=== PATIENT | male | born 1950 | race Hispanic/Latino ===

== ENCOUNTER 2018-10-25 13:07 | Emergency (ER) | payer OTHER ==
[~2018-10-25 13:07] MED LIST: ALPR2TAB2 PO; ASPI-555 PO; ENALAPRIL PO; FERR159T2 PO; FOLI1TAB85 PO; INSLAN SQ; LOVASTATIN PO; METF-446 PO; NOVOLOG SQ; OMEG-75 PO; PARO40TA72 PO; TESTOSTERONE GEL TP; VERA120T11 PO; VITA400C70 PO
[2018-10-25] MEDS ORDERED: LIDOCAINE HCL 1% 20 ML VIAL ONE (13:54)
== END 2018-10-25 14:40 | disposition home or self-care (01) ==
LOC: EDH 13:07
DX: S63.283A Dislocation of proximal interphalangeal joint of left middle finger, initial encounter (principal); E11.9 Type 2 diabetes mellitus without complications; E78.5 Hyperlipidemia, unspecified; I10 Essential (primary) hypertension; Z79.4 Long term (current) use of insulin; Z96.649 Presence of unspecified artificial hip joint; W18.39XA Other fall on same level, initial encounter; Y93.89 Activity, other specified; Y92.098 Other place in other non-institutional residence as the place of occurrence of the external cause; Y99.8 Other external cause status
CPT/HCPCS: 26770; 73140

== ENCOUNTER 2019-01-07 12:51 | Emergency (ER) | payer OTHER ==
[~2019-01-07 12:51] MED LIST changes: +VITA-164 PO; -VITA400C70 PO
[2019-01-07 13:16] LABS: BASOPHILS % (AUTO) 1.2 % (0.0-5.0); EOSINOPHILS % (AUTO) 2.9 % (0.0-8.0); HEMATOCRIT 46.1 % (42-54); LYMPHOCYTES % (AUTO) 34.3 % (21.0-51.0); MEAN CORPUSCULAR HEMOGLOBIN 28.6 pg (27.0-33.0); MEAN CORPUSCULAR HGB CONC 33.6 g/dL (32.0-36.0); MEAN CORPUSCULAR VOLUME 85.2 fL (79-99); MONOCYTES % (AUTO) 7.3 % (3.0-13.0); NEUTROPHILS % (AUTO) 54.3 % (40.0-77.0); NUCLEATED RED BLOOD CELLS 0.2 % (0.0-0.19); PLATELET COUNT (AUTO) 129 K/uL (130-400); RED BLOOD CELL COUNT(AUTO) 5.41 MIL/uL (4.50-6.20); RED CELL DISTRIBUTION WIDTH 16.8 % (11.0-15.5); WHITE BLOOD COUNT (AUTO) 4.3 K/uL (4.8-10.8)
[2019-01-07 13:25] LABS: CARBON DIOXIDE 26 mmol/L (21-32); CHLORIDE 103 mmol/L (101-111); CREATININE 1.1 mg/dL (0.5-1.5); GLOMERULAR FILTR. RATE CALC 71 mL/min (>60); GLUCOSE,RANDOM 322 mg/dL (70-105); POTASSIUM 4.6 mmol/L (3.5-5.1); SODIUM SERUM 139 mmol/L (136-145); UREA NITROGEN, BLOOD 11 mg/dL (7-18)
[2019-01-07 13:30] LABS: ALANINE AMINOTRANSFERASE 50 U/L (12-78); ALBUMIN 3.5 g/dL (3.5-5.0); ALCOHOL, BLOOD < 3 mg/dL (0-10); ASPARTATE AMINOTRANSFERASE 41 U/L (10-37); BILIRUBIN,TOTAL 0.7 mg/dL (0.2-1.0); TOTAL PROTEIN, SERUM 7.2 g/dL (6.0-8.3)
[2019-01-07 13:35] LABS: INR 0.95 (0.85-1.15); PARTIAL THROMBOPLASTIN TIME 26.4 SEC (26.3-35.5)
== END 2019-01-07 15:47 | disposition home or self-care (01) ==
LOC: EDH 12:51
DX: S01.01XA Laceration without foreign body of scalp, initial encounter (principal); E11.9 Type 2 diabetes mellitus without complications; E78.5 Hyperlipidemia, unspecified; I10 Essential (primary) hypertension; Z79.4 Long term (current) use of insulin; W01.0XXA Fall on same level from slipping, tripping and stumbling without subsequent striking against object, initial encounter; Y93.01 Activity, walking, marching and hiking; Y92.89 Other specified places as the place of occurrence of the external cause; Y99.8 Other external cause status
CPT/HCPCS: 12032; 36415; 70450; 71045; 80053; 84484; 85025; 85610; 85730; 93005; 99285; G0480

== ENCOUNTER → 2019-04-10 | Outpatient (CLI) | payer OTHER ==
[~2019-04-10] VITALS: Ht 175.3 cm; Wt 102.1 kg
[~2019-04-10] MED LIST changes: +REGADENOSON 0.4 MG/5 ML PF SYG IVP SCH; -VERA120T11 PO; +VERA120T20 PO
== END | disposition home or self-care (01) ==
LOC: SHCH 08:25
PROVIDERS: ATTEND Internal Medicine Cardiovascular Disease
DX: I25.119 Atherosclerotic heart disease of native coronary artery with unspecified angina pectoris (principal)
CPT/HCPCS: 78452; 93017; 96374; A9500 ×2; J2785

== ENCOUNTER → 2020-08-26 | Outpatient (CLI) | payer MEDICARE ==
[~2020-08-26] MED LIST changes: -ASPI-555 PO; +ASPI-556 PO; +OMEG-189 PO; -OMEG-75 PO; -REGADENOSON 0.4 MG/5 ML PF SYG IVP SCH
== END | disposition home or self-care (01) ==
LOC: SHCH 10:53
PROVIDERS: ATTEND Internal Medicine Cardiovascular Disease
DX: I25.119 Atherosclerotic heart disease of native coronary artery with unspecified angina pectoris (principal); E78.5 Hyperlipidemia, unspecified
CPT/HCPCS: 93306; 93356

== ENCOUNTER → 2020-08-30 | Outpatient (CLI) | payer MEDICARE ==
[~2020-08-30] MED LIST changes: +REGADENOSON 0.4 MG/5 ML PF SYG IVP SCH
== END | disposition home or self-care (01) ==
LOC: SHCH 08:35
PROVIDERS: ATTEND Internal Medicine Cardiovascular Disease
DX: I51.7 Cardiomegaly (principal); I25.119 Atherosclerotic heart disease of native coronary artery with unspecified angina pectoris; R06.09 Other forms of dyspnea; E78.5 Hyperlipidemia, unspecified; R51.9 Headache, unspecified
CPT/HCPCS: 78452; 93017; 96374; A9500 ×2; J2785

== ENCOUNTER → 2021-11-14 | Outpatient (CLI) | payer MEDICARE ==
[~2021-11-14] MED LIST changes: -REGADENOSON 0.4 MG/5 ML PF SYG IVP SCH
== END | disposition home or self-care (01) ==
LOC: OIH 15:11
PROVIDERS: ATTEND Internal Medicine Cardiovascular Disease
DX: I73.9 Peripheral vascular disease, unspecified (principal)
CPT/HCPCS: 93925

== ENCOUNTER → 2021-11-22 | Outpatient (CLI) | payer MEDICARE | END | disposition home or self-care (01) | LOC: SHCH 15:08 | PROVIDERS: ATTEND Internal Medicine Cardiovascular Disease | DX: I87.2 Venous insufficiency (chronic) (peripheral) (principal); R60.0 Localized edema | CPT/HCPCS: 93970 ==

== ENCOUNTER → 2024-12-28 | Outpatient (CLI) | payer MEDICARE ==
[~2024-12-28] MED LIST changes: -OMEG-189 PO; +OMEG-237 PO; -VITA-164 PO; +VITA-348 PO
--- NOTE | 2024-12-28 15:52 | HMCIMG ---
EXAM: ULTRASOUND ARTERIAL DUPLEX OF BOTH LOWER EXTREMITIES Technique: Grayscale, color Doppler, and spectral Doppler evaluation of the common femoral, superficial femoral, popliteal, anterior tibial, posterior tibial, and dorsalis pedis arteries bilaterally with angle-corrected peak systolic velocity sampling and waveform assessment. Contrast: Not administered. Clinical Information: Peripheral vascular disease. Findings: Right lower extremity arteries: Common femoral artery peak systolic velocity 119 cm/s with triphasic waveform. Proximal superficial femoral artery 101 cm/s, triphasic; mid 88 cm/s, triphasic; distal 86 cm/s, triphasic. Proximal popliteal artery 90 cm/s, triphasic; distal popliteal 68 cm/s, triphasic. Posterior tibial artery 97 cm/s, triphasic. Distal anterior tibial artery 88 cm/s, triphasic. Dorsalis pedis artery 70 cm/s, triphasic. No focal velocity acceleration or post-stenotic turbulence identified. Left lower extremity arteries: Common femoral artery 153 cm/s, triphasic. Proximal superficial femoral artery 86 cm/s, triphasic; mid 83 cm/s, triphasic; distal 53 cm/s, triphasic. Proximal popliteal artery 71 cm/s, triphasic; distal popliteal 57 cm/s, triphasic. Posterior tibial artery 75 cm/s, triphasic. Distal anterior tibial artery 39 cm/s, biphasic. Dorsalis pedis artery 27 cm/s, biphasic. Multilevel atherosclerotic change without focal marked velocity step-up; distal runoff waveforms are dampened (biphasic) in the distal anterior tibial and dorsalis pedis segments. IMPRESSION: 1. Patent bilateral lower-extremity arterial systems with no hemodynamically significant (?50%) stenosis identified. 2. Left distal runoff attenuation with biphasic waveforms and relatively low velocities in the distal anterior tibial and dorsalis pedis arteries, compatible with distal small-vessel disease without focal high-grade stenosis. 3. Multilevel atherosclerotic plaque burden throughout both lower extremities. 4. Triphasic waveforms throughout the right leg and predominantly triphasic waveforms on the left. /Drumright
== END | disposition home or self-care (01) ==
LOC: RAH 09:42
PROVIDERS: ATTEND Internal Medicine Cardiovascular Disease
DX: I73.9 Peripheral vascular disease, unspecified (principal)
CPT/HCPCS: 93925